=== PATIENT | female | born 1985 | race Caucasian/White ===

== ENCOUNTER → 2024-05-23 09:31 | Outpatient (CLI) | payer BC, SELFPAY ==
--- NOTE | ~2024-05-23 | XR_ITS ---
EXAMINATION: XR hip LT 2V w AP pelvis DATE: 05/23/2024 09:45 INDICATION: Left hip pain TECHNIQUE: Anteroposterior view of the pelvis and anteroposterior and oblique lateral views of the le ft hip were obtained. COMPARISON: None. FINDINGS: Bone alignment is normal. No fracture or suspected osteonecrosis. Bilateral hip and sacroiliac joint spaces are relatively preserved. There are few phleboliths in the pelvis. IMPRESSION: 1. Negative left hip radiographs. Reviewed, dictated and finalized at location B. TENANCE CHIEF
== END ==
LOC: EXPTROY 09:32
PROVIDERS: PCP Nurse Practitioner Family; Visit Provider Nurse Practitioner Family
DX: M25.552 Pain in left hip (principal)
CPT/HCPCS: 73502